=== PATIENT | female | born 1980 | race Caucasian/White ===

== ENCOUNTER 2019-06-20 12:27 | Emergency (ER) | payer OTHER ==
[~2019-06-20] VITALS: Ht 170.2 cm; Wt 65.5 kg
[2019-06-20 12:33] VITALS: BP 109/74
--- NOTE | 2019-06-20 12:53 | NUR ---
C/O RIGHT FLANK PAIN RADIATING MID ABDOMEN WITH N/V/D X 3 DAYS---NOT IMPROVING
[2019-06-20] MEDS ORDERED: FAMOTIDINE 20 MG TAB PO ONE (13:30)
[2019-06-20] MEDS ORDERED: ALUMINUM HYD/MAG/SIMETHICONE 30 ML UDC PO ONE (13:30)
[2019-06-20] MEDS ORDERED: ONDANSETRON 4 MG ODT PO ONE (13:30)
--- NOTE | 2019-06-20 13:48 | NUR ---
PT RESTING IN BED, CALM. VSS.
--- NOTE | 2019-06-20 14:48 | NUR ---
Patient discharged with v/s stable. Written and verbal after care instructions given and explained. Patient alert, oriented and verbalized understanding of instructions. Ambulatory with steady gait. All questions addressed prior to discharge. ID band removed. Patient advised to follow up with PMD. Rx of pepcid/ zofran given. Patient educated on indication of medication including possible reaction and side effects. Opportunity to ask questions provided and answered.
[2019-06-20 14:49] VITALS: BP 113/61
== END 2019-06-20 14:48 | disposition home or self-care (01) ==
LOC: MED 12:27
DX: N94.6 Dysmenorrhea, unspecified (principal); K29.70 Gastritis, unspecified, without bleeding; R42 Dizziness and giddiness
CPT/HCPCS: 81002; 81025; 99284; Q0162

== ENCOUNTER 2023-04-06 21:34 | Emergency (ER) | payer OTHER ==
[~2023-04-06] VITALS: Ht 167.6 cm; Wt 65.8 kg
[2023-04-06 21:34] VITALS: BP 119/87; PULSE 109; RESP 17; TEMP 98.1; O2SAT 97
--- NOTE | 2023-04-06 21:37 | NUR ---
PT BIBA BLS. TAKEN TO BED 9
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
[2023-04-06] MEDS ORDERED: KETOROLAC 60 MG/2 ML VIAL IM ONE (23:00)
--- NOTE | 2023-04-06 23:09 | NUR ---
Pt report given to ULISES MONTES. Transfer of care at this time.
--- NOTE | 2023-04-06 23:34 | NUR ---
pt still c/o pain 10/10 pain unrelieved from medication. ER MD made aware- will place orders.
[2023-04-06] MEDS ORDERED: MORPHINE SULFATE 4 MG/ML SYR IM ONE (23:40)
[2023-04-07] MEDS ORDERED: NAPR-54 PO (00:04)
[2023-04-07 00:56] VITALS: BP 130/64; PULSE 103; RESP 15; O2SAT 96
== END 2023-04-07 00:10 | disposition home or self-care (01) ==
LOC: MED 21:34
DX: S13.9XXA Sprain of joints and ligaments of unspecified parts of neck, initial encounter (principal); S43.401A Unspecified sprain of right shoulder joint, initial encounter; F32.9 Major depressive disorder, single episode, unspecified; F41.9 Anxiety disorder, unspecified; Z98.890 Other specified postprocedural states; Z79.899 Other long term (current) drug therapy; Z90.710 Acquired absence of both cervix and uterus; X58.XXXA Exposure to other specified factors, initial encounter; Y93.89 Activity, other specified; Y92.89 Other specified places as the place of occurrence of the external cause; Y99.8 Other external cause status
CPT/HCPCS: 96372; 99284; J1885; J2270